=== PATIENT | female | born 1995 | race Caucasian/White ===

== ENCOUNTER 2021-06-02 01:33 | Emergency (ER) | payer BC ==
[~2021-06-02] VITALS: Ht 160 cm; Wt 62.1 kg
[2021-06-02 01:40] VITALS: BP_SYST 133
--- NOTE | 2021-06-02 01:40 | NUR ---
ER examining patient in the lobby.
--- NOTE | 2021-06-02 02:00 | NUR ---
ER examining patient in the triage room.
[2021-06-02] MEDS ORDERED: ONDANSETRON 4 MG ODT TAB PO ONE (02:15)
[2021-06-02] MEDS ORDERED: MORPHINE 4 MG INJ. 4 MG/ML VIAL IM ONE (02:15)
[2021-06-02] MEDS ORDERED: CEPH-548 PO (04:17)
--- NOTE | 2021-06-02 04:20 | NUR ---
Patient given written and verbal discharge instructions and verbalizes understanding. ER MD discussed with patient the results and treatment provided. Patient in stable condition. ID arm band removed. Rx of Keflex given. Patient educated on pain management and to follow up with PMD. Pain Scale 0/10. Opportunity for questions provided and answered. Medication side effect fact sheet provided.
[2021-06-02 04:21] VITALS: BP_SYST 129
== END 2021-06-02 04:20 | disposition home or self-care (01) ==
LOC: SED 01:33
DX: K80.20 Calculus of gallbladder without cholecystitis without obstruction (principal); N39.0 Urinary tract infection, site not specified
CPT/HCPCS: 76705; 81002; 81025; 96372; 99284; J2270; Q0162

== ENCOUNTER 2021-06-13 09:20 | Day surgery (SDC) | payer BC ==
[~2021-06-13] VITALS: Ht 160 cm; Wt 66.7 kg
[~2021-06-13 09:20] MED LIST: CEPH-548 PO
[2021-06-13 09:57] LABS: HCG,QUAL RESULT NEGATIVE (NEGATIVE)
[2021-06-13] MEDS ORDERED: CEFAZOLIN 2 GM IVPB PREMIX 50 ML IV ONE (11:30)
[2021-06-13] MEDS ORDERED: HYDROmorphone 2 MG/ML VIAL IVP PRN (12:00)
[2021-06-13] MEDS ORDERED: ONDANSETRON HCL 4 MG/2 ML VIAL IVP PRN (12:00)
[2021-06-13] MEDS ORDERED: HYDROmorphone 1 MG/ML INJ. CARTRIDGE IVP PRN ×2 (12:00)
[2021-06-13] MEDS ORDERED: DEXAMETHASONE SOD PHOSPHATE 4 MG/ML VIAL ONE (13:19)
[2021-06-13] MEDS ORDERED: fentaNYL CITRATE/PF 100 MCG/2 ML AMP ONE (13:19)
[2021-06-13] MEDS ORDERED: INDOCYANINE GREEN 25 MG VIAL ONE (13:19)
[2021-06-13] MEDS ORDERED: ROCURONIUM BROMIDE 10 MG/ML (ZEMURON) ONE (13:19)
[2021-06-13] MEDS ORDERED: BUPIVACAINE /EPINEPHRINE/PF 0.5% 30 ML VIAL INJ ONE (13:19)
[2021-06-13] MEDS ORDERED: ONDANSETRON HCL 4 MG/2 ML VIAL ONE ×2 (13:19→14:33)
[2021-06-13] MEDS ORDERED: LR 1,000 ML IV.SOLN IV ONE (13:19)
[2021-06-13] MEDS ORDERED: WATER FOR IRRIGATION,STERILE 1,000 ML IRRIG.SOLN IR ONE (13:19)
[2021-06-13] MEDS ORDERED: SUCCINYLCHOLINE CHLORIDE 20 MG/ML(QUELICIN) ONE (13:19)
[2021-06-13] MEDS ORDERED: NS IRRIG SOLN 1000 ML IR ONE (13:19)
[2021-06-13] MEDS ORDERED: KETOROLAC TROMETHAMINE 30 MG VIAL ONE (13:19)
[2021-06-13] MEDS ORDERED: HYDROmorphone 2 MG/ML VIAL ONE (13:19)
[2021-06-13] MEDS ORDERED: PROPOFOL 200MG/ 20ML VIAL (DIPRIVAN) IV ONE (13:19)
[2021-06-13] MEDS ORDERED: METOCLOPRAMIDE HCL 10 MG/2 ML VIAL ONE ×2 (13:19→15:46)
[2021-06-13] MEDS ORDERED: DESFLURANE 15 MIN GAS INH ONE (13:19)
[2021-06-13 14:22] VITALS: BP_SYST 109
[2021-06-13] MEDS ORDERED: METOCLOPRAMIDE HCL 10 MG/2 ML VIAL IVP ONE (15:45)
== END 2021-06-13 17:00 | disposition home or self-care (01) ==
LOC: SDS 09:20
PROVIDERS: ATTEND Surgery
DX: K80.10 Calculus of gallbladder with chronic cholecystitis without obstruction (principal); Z79.899 Other long term (current) drug therapy; Z20.822 Contact with and (suspected) exposure to COVID-19
CPT/HCPCS: 36415; 47563; 74300; 84703; 87426; 88304; J0330; J0690; J1100; J1170; J1885; J2405; J2704; J2765; J3010; J3490; J7120; S2900; Q9967